=== PATIENT | female | born 1975 | race Hispanic/Latino ===

== ENCOUNTER 2021-09-19 11:27 | Day surgery (SDC) | payer OTHER ==
[~2021-09-19 11:27] MED LIST: CeleCOXIB 100 MG CAP ONE; Lidocaine 1% MPF 2 ML VIAL ONE
[2021-09-19 11:36] VITALS: BMI 27.4
[2021-09-19] MEDS ORDERED: Lidocaine 1% PF 5 ML VIAL ONE (11:48)
[2021-09-19] MEDS ORDERED: Fentanyl 100 MCG/2 ML VIAL ONE (11:48)
[2021-09-19] MEDS ORDERED: Ondansetron PF 4 MG/2 ML Vial ONE (11:48)
[2021-09-19] MEDS ORDERED: Dexamethasone 4 mg/ml Vial ONE (11:48)
[2021-09-19] MEDS ORDERED: PROPOFOL 20 ML ONE (11:48)
[2021-09-19 12:02] LABS: Hemoglobin 12.9 g/dL (12.0-15.5); Mean Corpuscular HGB CONC 31.9 g/dL (32.0-36.0); Mean Corpuscular Hemoglobin 26.8 pg (27.0-33.0); Mean Platelet Volume 9.8 fl (7.4-10.4); Platelet Count 317 10x3/uL (150-450); RBC Distribution Width 14.8 % (11.5-14.5); Red Blood Cell (RBC) Count 4.82 10x6/uL (3.90-5.03); White Blood Cell (WBC) Count 9.1 10x3/uL (3.5-10.5)
[2021-09-19] MEDS ORDERED: Midazolam HCl 2 mg/2 ml Vial ONE (12:02)
[2021-09-19] MEDS ORDERED: ceFAZolin 2 GM/Dextrose 50 ML IVPB ONE (12:03)
[2021-09-19 12:24] LABS: BHCG - Serum Negative (NEGATIVE); Pregs Control Background? CLEAR/WHITE (CLR/WHITE); Pregs Control Bar Appear? YES (CONTROL BAR)
== END 2021-09-19 14:15 | disposition home or self-care (01) ==
LOC: CSHSDC 11:27
PROVIDERS: ATTEND Obstetrics & Gynecology
PROC: 0U5B8ZZ Destruction of Endometrium, Via Natural or Artificial Opening Endoscopic (ICD-10-PCS; principal; 2021-09-19)
DX: N92.0 Excessive and frequent menstruation with regular cycle (principal); D64.9 Anemia, unspecified; E78.5 Hyperlipidemia, unspecified; I10 Essential (primary) hypertension; E78.00 Pure hypercholesterolemia, unspecified; E11.9 Type 2 diabetes mellitus without complications; Z79.82 Long term (current) use of aspirin; Z79.84 Long term (current) use of oral hypoglycemic drugs; Z79.899 Other long term (current) drug therapy
CPT/HCPCS: 84703; 85027; 86850; 86900; 86901; J0690; J1100; J2250; J2405; J2704; J3010